=== PATIENT | male | born 1960 | race Caucasian/White ===

== ENCOUNTER 2025-05-21 08:49 | Outpatient (CLI) | payer OTHER, SELFPAY | END 2025-05-21 08:50 | disposition home or self-care (01) | LOC: NFLDREF 05-24 04:45 | PROVIDERS: Visit Provider Family Medicine | DX: J44.9 Chronic obstructive pulmonary disease, unspecified (principal); E03.9 Hypothyroidism, unspecified; J18.9 Pneumonia, unspecified organism; R53.83 Other fatigue | CPT/HCPCS: 84443 ==

== ENCOUNTER 2025-06-25 12:05 | Outpatient (CLI) | payer OTHER, SELFPAY | END 2025-06-25 12:06 | disposition home or self-care (01) | PROVIDERS: PCP Family Medicine; Visit Provider Family Medicine | DX: E78.00 Pure hypercholesterolemia, unspecified (principal); C61 Malignant neoplasm of prostate | CPT/HCPCS: 80053; 80061; 84153 ==